=== PATIENT | male | born 1955 | race Two or more races ===

== ENCOUNTER 2016-11-17 14:12 | Emergency (ER) | payer OTHER ==
[2016-11-17 14:54] VITALS: BP 113/41
--- NOTE | 2016-11-17 15:22 | UC ---
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 - History of Current Complaint Chief Complaint: UCAbdominalPain Stated Complaint: ABD PAIN Time Seen by Provider: 11/17/16 15:14 Hx Obtained From: Patient Onset/Duration: Sudden Onset Severity Initially: Moderate Severity Currently: Moderate Pain Scale Used: 0-10 Numeric - 5 - Allergies/Home Medications Allergies/Adverse Reactions: Allergies Allergy/AdvReac Type Severity Reaction Status Date / Time No Known Allergies Allergy Verified 11/17/16 14:49 Home Medications: Home Medications NK [No Home Medications Reported] 11/17/16 [History Confirmed 11/17/16] PMH/Surg Hx/FS Hx/Imm Hx Previously Healthy: Yes - Surgical History Surgical History: None - Family History Known Family History: Positive: None - Social History Alcohol Use: None Substance Use Type: None Smoking Status (MU): Never Smoked Tobacco Review of Systems Constitutional: Negative Skin: Negative Eyes: Negative ENT: Negative Respiratory: Negative Cardiovascular: Negative Gastrointestinal: Abdominal Pain Genitourinary: Negative Motor: Negative Neurovascular: Negative Musculoskeletal: Negative Neurological: Negative Psychological: Negative All Other Systems Reviewed And Are Negative: Yes Physical Exam Triage Information Reviewed: Yes Vital Signs: Initial Vital Signs Temp 36.6 C 11/17/16 14:50 Pulse 60 11/17/16 14:50 Resp 16 11/17/16 14:50 BP 113/41 11/17/16 14:50 Pulse Ox 99 11/17/16 14:50 Eye Exam: Normal ENT Exam: Normal Dental Exam: Normal Neck exam: Normal Neck: Positive: 1 Respiratory Exam: Normal Cardiovascular Exam: Normal Abdomen Description: Positive: Other: Musculoskeletal Exam: Normal Neurological Exam: Normal Psychological Exam: Normal Skin Exam: Normal Abd Pain Male Course/Dx - Differential Dx/Clinical Impression Provider Diagnoses: ABDOMINAL PAIN Discharge - Discharge Plan Condition: Stable Disposition: HOME Patient Education Materials: Abdominal Pain (ED) Referrals: Audi Houser MD [Primary Care Provider] -
== END 2016-11-17 15:27 | disposition home or self-care (01) ==
LOC: UCEAST 14:12
DX: R10.84 Generalized abdominal pain (principal)
CPT/HCPCS: 99211; G0463